=== PATIENT | female | born 1955 | race Caucasian/White ===

== ENCOUNTER → 2017-02-18 | Outpatient (CLI) | payer OTHER | LOC: BMCIMAGING 12:33 | PROVIDERS: ATTEND Internal Medicine | DX: R05 Cough (principal) ==

== ENCOUNTER → 2017-09-24 | Outpatient (CLI) | payer OTHER | LOC: BMCIMAGING 15:01 | PROVIDERS: ATTEND Internal Medicine | DX: Z12.31 Encounter for screening mammogram for malignant neoplasm of breast (principal) | CPT/HCPCS: G0202 ==

== ENCOUNTER → 2017-10-02 | Outpatient (CLI) | payer OTHER | LOC: BMCIMAGING 11:26 | PROVIDERS: ATTEND Internal Medicine | DX: Z12.39 Encounter for other screening for malignant neoplasm of breast (principal); R92.2 Inconclusive mammogram | CPT/HCPCS: G0206 ==

== ENCOUNTER → 2018-03-12 | Outpatient (CLI) | payer OTHER | LOC: BMCIMAGING 11:18 | PROVIDERS: ATTEND Internal Medicine | DX: Z13.820 Encounter for screening for osteoporosis (principal); M81.0 Age-related osteoporosis without current pathological fracture; Z82.62 Family history of osteoporosis ==

== ENCOUNTER → 2019-03-05 | Outpatient (CLI) | payer OTHER | LOC: BMCIMAGING 13:43 | PROVIDERS: ATTEND Physician Assistant | DX: M17.11 Unilateral primary osteoarthritis, right knee (principal); M25.562 Pain in left knee ==